=== PATIENT | female | born 1960 | race Caucasian/White ===

== ENCOUNTER 2024-08-15 21:35 | Observation (INO) ==
--- NOTE | 2024-08-15 22:06 | DR.CP ---
HPI Time Seen Time Seen by Provider: 08/15/24 21:56 PCP Primary Care Physician: Complaint Chief Complaint Doctor Comments: 63 yo F, hx of pacemaker for bradycardia, also hx of small-cell lung CA, c/o L-sided CP for past 4h [employer], with radiation into upper back, accomp by dyspnea. Denies other complaints. States pain is currently severe. States she had a stress test and cardiac cath ~1y ago, no stents needed at that time. Chief Complaint:: PT STATED SHE IS HAVING CHEST PAIN AND UPPER BACK SHOULDER PAIN THAT STARTED TODAY ABOUT 5PM THAT IS GETTING WORSE. Self Treatment fo Chief Complaint: NO Source History Provided: Patient Mode of Arrival Mode of Arrival: Ambulatory Timing Onset of Chief Complaint: 08/15/24 PMH PMH Past Medical History: Yes Past Medical History: Migraines Past Medical History Comment: PACEMAKER, GASTRIC BYPASS, SMALL CELL LUNG CANCER. Past Surgical History: Yes Surgical History: Cholecystectomy, Hysterectomy and Ortho Surgery Family History History of Family Medical Conditions: Yes Family Medical History: Diabetes Mellitus, Heart Failure and Hypertension Social History Do you use any recreational Drugs:: No Infectious screening Have you traveled outside the country in the last 6 months?: No Isolation: Standard ROS Review of Systems Respiratoy: Short of Breath Cardiovascular: Chest Pain Musculoskeletal: Back Pain All Other Systems: Reviewed and Negative PE Vitals Vitals: Vital Signs Temperature 98.2 F Pulse Rate 64 Pulse Rate 64 Pulse Rate 62 Pulse Rate 63 Pulse Rate 62 Pulse Rate 65 Pulse Rate 79 Pulse Rate 66 Pulse Rate 70 Pulse Rate 68 Pulse Rate 69 Pulse Rate 65 Pulse Rate 67 Pulse Rate 77 Respiratory Rate 18 Respiratory Rate 16 Respiratory Rate 15 Respiratory Rate 22 Respiratory Rate 13 Respiratory Rate 12 Respiratory Rate 20 Respiratory Rate 14 Respiratory Rate 26 Respiratory Rate 12 Respiratory Rate 13 Respiratory Rate 24 Respiratory Rate 20 Respiratory Rate 20 Blood Pressure 117/59 Blood Pressure 113/58 Blood Pressure 110/53 Blood Pressure 120/63 Blood Pressure 128/64 Blood Pressure 118/64 Blood Pressure 132/85 Blood Pressure 131/61 Blood Pressure 133/79 O2 Sat by Pulse Oximetry 95 O2 Sat by Pulse Oximetry 96 O2 Sat by Pulse Oximetry 95 O2 Sat by Pulse Oximetry 99 O2 Sat by Pulse Oximetry 98 O2 Sat by Pulse Oximetry 98 O2 Sat by Pulse Oximetry 100 O2 Sat by Pulse Oximetry 100 O2 Sat by Pulse Oximetry 99 General Limitations: No Limitations General Appearance: Alert and In No Apparent Distress Head Head Exam: Normal Inspection Eyes Eye exam: Normal Appearance ENT ENT Exam: Normal Exam Chest Chest Inspection: Normal Inspection Respiratory Respiratory Exam: Normal Lung Sounds Bilat Cardiovascular Cardiovascular Exam: Regular Rate and Normal Rhythm Pulse: Normal Edema: Normal Abdominal Exam Abdominal Exam: Normal Inspection, Normal Bowel Sounds and Soft Extremities Extremities Exam: Normal Inspection Back Back Exam: Normal Inspection Neurologic Neurological Exam: Alert and Oriented X3 Psychiatric Psychiatric Exam: Normal Affect and Normal Mood Skin Skin Exam: Warm, Dry, Intact and Normal Color ROR Labs Reviewed 08/15/24 22:13 08/15/24 22:13 Laboratory: WBC 5.7 X10^3/uL (3.6-10.0) 08/15/24 22:13 RBC 4.40 X10^6/uL (3.5-5.4) 08/15/24 22:13 Hgb 12.8 g/dL (12.0-16.0) 08/15/24 22:13 Hct 38.2 % (36.0-47.0) 08/15/24 22:13 MCV 86.8 fL (80.0-100.0) 08/15/24 22:13 MCH 29.1 pg (27.0-34.0) 08/15/24 22:13 MCHC 33.5 g/dL (33.0-35.0) 08/15/24 22:13 RDW 15.3 % (11.6-16.5) 08/15/24 22:13 Plt Count 216 X10^3/uL (150.0-450.0) 08/15/24 22:13 MPV 8.2 fL (7.4-11.0) 08/15/24 22:13 Neut % (Auto) 63.7 % (42.0-75.0) 08/15/24 22:13 Lymph % (Auto) 20.6 % (21.0-51.0) L 08/15/24 22:13 [place] % (Auto) 7.9 % (0.0-13.0) 08/15/24 22:13 Eos % (Auto) 6.9 % (0.9-2.9) H 08/15/24 22:13 Baso % (Auto) 0.9 % (0.2-1.0) 08/15/24 22:13 Neut # (Auto) 3.6 x10^3/uL (2.2-4.8) 08/15/24 22:13 Lymph # (Auto) 1.2 X10^3/uL (1.3-2.9) L 08/15/24 22:13 [place] # (Auto) 0.4 x10^3/uL (0.3-0.8) 08/15/24 22:13 Eos # (Auto) 0.4 x10^3/uL (0.0-0.2) H 08/15/24 22:13 Baso # (Auto) 0.1 X10^3/uL (0.0-0.1) 08/15/24 22:13 Absolute Nucleated RBC 0.2 /100WBC 08/15/24 22:13 PT 13.5 SECONDS (11.8-14.3) 08/15/24 22:13 INR Target Range - 08/15/24 22:13 INR 1.05 (0.8-1.3) 08/15/24 22:13 APTT 24.7 SECONDS (22.9-36.5) 08/15/24 22:13 PTT Comment - 08/15/24 22:13 Sodium 143 mmol/L (136-145) 08/15/24 22:13 Corrected Sodium 144 mmol/L (136-145) 08/15/24 22:13 Potassium 2.9 mmol/L (3.5-5.1) L* 08/15/24 22:13 Chloride 103 mmol/L (98-107) 08/15/24 22:13 Carbon Dioxide 29.8 mmol/L (21-32) 08/15/24 22:13 BUN 8 mg/dL (7-18) 08/15/24 22:13 Creatinine 0.87 mg/dL (0.55-1.02) 08/15/24 22:13 Est GFR (MDRD) Af Amer > 60 (>60) 08/15/24 22:13 Est GFR (MDRD) Non-Af > 60 (>60) 08/15/24 22:13 Glucose 131 mg/dL (65-99) H 08/15/24 22:13 Calcium 9.0 mg/dL (8.5-10.1) 08/15/24 22:13 Corrected Calcium TNP 08/15/24 22:13 Total Bilirubin 0.80 mg/dL (0.2-1.0) 08/15/24 22:13 AST 15 Units/L (15-37) 08/15/24 22:13 ALT 16 Units/L (12-78) 08/15/24 22:13 Alkaline Phosphatase 173 Units/L (46-116) H 08/15/24 22:13 Creatine Kinase 63 Units/L (26-192) 08/15/24 22:13 Troponin I High Sens 52.8 ng/L (4.0-60.0) 08/16/24 00:15 Total Protein 6.9 g/dL (6.4-8.2) 08/15/24 22:13 Albumin 3.4 g/dL (3.4-5.0) 08/15/24 22:13 Globulin 3.5 g/dL (2.5-4.5) 08/15/24 22:13 Albumin/Globulin Ratio 1.0 Ratio (1.1-2.1) L 08/15/24 22:13 Opioid Opioid Risk Tool Age (Elvis box if 16-45): No History of Preadolescent Sexual Abuse: No Total: 0 Total Score Risk Category: Low Risk Copyright: Mohan IRWIN predicting aberrant behaviors Discharge Plan Diagnosis Discharge Problem: Chest pain Discharge Plan Patient Disposition: 09 ADMITTED INPATIENT Condition: Stable Prescriptions: No Action hydrocodone-acetaminophen 10-325 mg tablet nabumetone 500 mg tablet Health Concerns: Post Hospitalization: new medications and changes needed to prevent readmission or further decline. Pt educated and given instructions on all concerns. Plan of Treatment: Continue with present treatment and follow up plan. Pt is to keep follow up appointment as instructed and take medications as ordered. Orders to Discharge Patient Discharge Orders: Transfer (Routine); Ordered 08/16/24 Ordered By: Stan Portillo Follow ups/Referrals Follow ups/Referrals: NFD,None [Primary Care Provider] - 3 days Instructions Stand Alone Forms: Find Help Web Site, Post Hospital Follow Up Care ADDITIONAL NOTES Additional Notes Additional Notes: Pt Accepted by Dr Mclaughlin at 0112AM
--- NOTE | 2024-08-15 22:16 | EKG ---
Test Reason : chest pain Blood Pressure : */* mmHG Vent. Rate : 79 BPM Atrial Rate : 79 BPM P-R Int : 264 ms QRS Dur : 102 ms QT Int : 388 ms P-R-T Axes : * -35 7 degrees QTc Int : 444 ms Atrial-paced rhythm with prolonged AV conduction Left axis deviation Low voltage QRS Inferior infarct , age undetermined Abnormal ECG No previous ECGs available Confirmed by Calin Osborne MD ([id number]) on 08/16/2024 6:33:07 AM Referred By: Confirmed By: Calin Osborne MD
[2024-08-15 22:26] LABS: BASOPHILS # (AUTO) 0.1 X10^3/uL (0.0-0.1); BASOPHILS % (AUTO) 0.9 % (0.2-1.0); EOSINOPHILS # (AUTO) 0.4 x10^3/uL (0.0-0.2); EOSINOPHILS % (AUTO) 6.9 % (0.9-2.9); HEMATOCRIT 38.2 % (36.0-47.0); HEMOGLOBIN 12.8 g/dL (12.0-16.0); LYMPHOCYTES # (AUTO) 1.2 X10^3/uL (1.3-2.9); LYMPHOCYTES % (AUTO) 20.6 % (21.0-51.0); MEAN CORPUSCULAR HEMOGLOBIN 29.1 pg (27.0-34.0); MEAN CORPUSCULAR HGB CONC 33.5 g/dL (33.0-35.0); MEAN CORPUSCULAR VOLUME 86.8 fL (80.0-100.0); MEAN PLATELET VOLUME 8.2 fL (7.4-11.0); MONOCYTES # (AUTO) 0.4 x10^3/uL (0.3-0.8); MONOCYTES % (AUTO) 7.9 % (0.0-13.0); NEUTROPHILS # (AUTO) 3.6 x10^3/uL (2.2-4.8); NEUTROPHILS % (AUTO) 63.7 % (42.0-75.0); PLATELET COUNT 216 X10^3/uL (150.0-450.0); RED CELL DISTRIBUTION WIDTH 15.3 % (11.6-16.5); WHITE BLOOD COUNT 5.7 X10^3/uL (3.6-10.0)
[2024-08-15 22:30] LABS: INR 1.05 (0.8-1.3)
[2024-08-15 22:50] LABS: ALANINE AMINOTRANSFERASE 16 Units/L (12-78); ALBUMIN 3.4 g/dL (3.4-5.0); ALKALINE PHOSPHATASE 173 Units/L (46-116); ASPARTATE AMINO TRANSFERASE 15 Units/L (15-37); BLOOD UREA NITROGEN 8 mg/dL (7-18); CARBON DIOXIDE 29.8 mmol/L (21-32); CHLORIDE 103 mmol/L (98-107); COR NA(FOR HYPERGLY) 144 mmol/L (136-145); CREATINE KINASE 63 Units/L (26-192); CREATININE 0.87 mg/dL (0.55-1.02); GLUCOSE 131 mg/dL (65-99); SODIUM 143 mmol/L (136-145); TOTAL PROTEIN 6.9 g/dL (6.4-8.2); eGFR NON BLACK RACES > 60 (>60)
[2024-08-15 22:51] LABS: POTASSIUM 2.9 mmol/L (3.5-5.1)
[2024-08-15] MEDS: ZOFRAN INJ 4 MG VIAL IVP ONE (23:05)
[2024-08-15] MEDS: NS 1,000 ML IV 1,000 ML IV ONE (23:06)
[2024-08-15] MEDS: DILAUDID INJ IVP ONE (23:06)
[2024-08-15] MEDS: K-DUR TAB 20 MEQ PO ONE (23:07)
[2024-08-15] MEDS: K-RIDER 10 MEQ/100 ML WATER 10 MEQ/100 ML BAG IV ONE (23:08)
--- NOTE | 2024-08-15 23:37 | CT ---
EXAMINATION:CTA, CHESTHISTORY:PT STATED SHE IS HAVING CHEST PAIN AND UPPER BACK SHOULDER PAIN THAT STARTED TODAY ABOUT 5PM THAT IS GETTING WORSE.;COMPARISON:None.TECHNIQUE:Contigu ous axial CT images of the thorax following intravenous contrast. Images reviewed in the axial imaging plane with post processing thick slab MIP/3D volume images at a workstationthe above CT scan was done with automated exposure control and the mA and kV was adjusted to obtain quality images according to patient size.FINDINGS:The lungs are expanded. No focal areas of pulmonary consolidation or pleural fluid collections. Minimal central bronchiectasis lower lungs. The central airways are patent.Cardiac pacer device left upper anterior chest. Mild cardiomegaly. Coronary artery calcifications. Enlarged main pulmonary outflow trunk measuring 3.3 cm diameter suspicious for pulmonary arterial hypertension. Normal enhancement of the thoracic aorta without evidence of aneurysm or dissection. Arterial vascular calcifications of the aorta and branch vessels.No pericardial effusion. No mediastinal or hilar adenopathy.Mild thoracic spondylosis.IMPRESSION:No evidence of acute pulmonary embolism.Enlarged main pulmonary outflow trunk suspicious for pulmonary arterial hypertension.No thoracic aortic aneurysm or dissection.Mild cardiomegaly, coronary artery calcifications. Evidence of right-sided cardiac dysfunction with reflux of contrast into the IVC.THIS IS AN ELECTRONICALLY VERIFIED FINAL REPORT08/15/2024 11:34 PM - Electronically signed by Vicki Spain MD
[2024-08-15] MEDS: MORPHINE SULFATE INJ 4 MG IVP ONE (23:42)
--- NOTE | 2024-08-16 01:49 | EKG ---
Test Reason : Chest Pain Blood Pressure : */* mmHG Vent. Rate : 71 BPM Atrial Rate : 71 BPM P-R Int : 268 ms QRS Dur : 94 ms QT Int : 382 ms P-R-T Axes : * -44 8 degrees QTc Int : 415 ms Atrial-paced rhythm with prolonged AV conduction Left axis deviation Low voltage QRS Cannot rule out Anterior infarct , age undetermined Abnormal ECG When compared with ECG of 15-AUG-2024 22:04, (Unconfirmed) Criteria for Inferior infarct are no longer present Confirmed by Calin Osborne MD ([id number]) on 08/16/2024 6:32:44 AM Referred By: Confirmed By: Calin Osborne MD
[2024-08-16] MEDS ORDERED: NS 1,000 ML IV 1,000 ML ONE (02:11)
[2024-08-16] MEDS: NS 1,000 ML IV 1,000 ML IV SCH (02:20)
[2024-08-16 02:54] VITALS: BMI 31.8
[2024-08-16] MEDS ORDERED: NORCO 5/325 MG TAB PO PRN (04:16)
[2024-08-16] MEDS: DILAUDID INJ IVP PRN (04:46)
[2024-08-16 06:30] LABS: INR 1.13 (0.8-1.3)
[2024-08-16 06:32] LABS: MEAN CORPUSCULAR VOLUME 86.8 fL (80.0-100.0); MONOCYTES # (AUTO) 0.6 x10^3/uL (0.3-0.8)
[2024-08-16 06:36] LABS: BASOPHILS % (AUTO) 0.6 % (0.2-1.0); EOSINOPHILS # (AUTO) 0.5 x10^3/uL (0.0-0.2); EOSINOPHILS % (AUTO) 8.3 % (0.9-2.9); HEMATOCRIT 36.6 % (36.0-47.0); HEMOGLOBIN 12.2 g/dL (12.0-16.0); LYMPHOCYTES # (AUTO) 1.5 X10^3/uL (1.3-2.9); LYMPHOCYTES % (AUTO) 26.1 % (21.0-51.0); MEAN CORPUSCULAR HEMOGLOBIN 28.9 pg (27.0-34.0); MEAN CORPUSCULAR HGB CONC 33.3 g/dL (33.0-35.0); MEAN PLATELET VOLUME 9.1 fL (7.4-11.0); MONOCYTES % (AUTO) 10.3 % (0.0-13.0); NEUTROPHILS # (AUTO) 3.1 x10^3/uL (2.2-4.8); NEUTROPHILS % (AUTO) 54.7 % (42.0-75.0); PLATELET COUNT 201 X10^3/uL (150.0-450.0); RED BLOOD COUNT 4.21 X10^6/uL (3.5-5.4); RED CELL DISTRIBUTION WIDTH 15.3 % (11.6-16.5); WHITE BLOOD COUNT 5.7 X10^3/uL (3.6-10.0)
[2024-08-16 06:39] LABS: ALANINE AMINOTRANSFERASE 15 Units/L (12-78); ALKALINE PHOSPHATASE 159 Units/L (46-116); ASPARTATE AMINO TRANSFERASE 16 Units/L (15-37); BLOOD UREA NITROGEN 6 mg/dL (7-18); CALCIUM 8.6 mg/dL (8.5-10.1); CARBON DIOXIDE 30.8 mmol/L (21-32); CHLORIDE 105 mmol/L (98-107); CHOL/HDL RATIO 2.5 (0.0-5.0); CHOLESTEROL 170 mg/dL (0-200); COR CA(FOR HYPOALB) 9.4 mg/dL (8.5-10.1); CREATININE 0.66 mg/dL (0.55-1.02); GLUCOSE 79 mg/dL (65-99); HDL CHOLESTEROL 67 mg/dL (40-60); MAGNESIUM 1.7 mg/dL (2.0-2.9); POTASSIUM 3.6 mmol/L (3.5-5.1); SODIUM 143 mmol/L (136-145); TOTAL PROTEIN 6.2 g/dL (6.4-8.2); TRIGLYCERIDES 92 mg/dL (0-150); eGFR NON BLACK RACES > 60 (>60)
[2024-08-16] MEDS: NS 100 ML IV 100 ML ONE (06:57)
[2024-08-16] MEDS: OMNIPAQUE 350 mg/mL 100 mL BTL 100 ML ONE (06:58)
--- NOTE | 2024-08-16 07:09 | RAD ---
EXAM:CHESTHISTORY:PT STATED SHE IS HAVING CHEST PAIN AND UPPER BACK SHOULDER PAIN THAT STARTED TODAY ABOUT 5PM THAT IS GETTING WORSE.;COMPARISON:CT chest August 15, 2023.TECHNIQUE:Frontal view of the chest was submitted for interpretation.FINDINGS:Left-sided cardiac pacer noted. The cardiomediastinal silhouette is within normal limits. Lungs show no focal consolidation, pneumothorax, or pleural fluid.IMPRESSION:No acute cardiopulmonary process.THIS IS AN ELECTRONICALLY VERIFIED FINAL REPORT08/16/2024 7:05 AM - Electronically signed by Didier Boogie MD
--- NOTE | 2024-08-16 07:20 | EKG ---
Test Reason : Chest Pain Blood Pressure : */* mmHG Vent. Rate : 62 BPM Atrial Rate : 62 BPM P-R Int : 250 ms QRS Dur : 94 ms QT Int : 334 ms P-R-T Axes : * -35 1 degrees QTc Int : 339 ms Atrial-paced rhythm with prolonged AV conduction Left axis deviation Low voltage QRS Nonspecific T wave abnormality Abnormal ECG When compared with ECG of 16-AUG-2024 01:28, Minimal criteria for Anterior infarct are no longer present Nonspecific T wave abnormality now evident in Lateral leads QT has shortened Confirmed by Calin Osborne MD ([id number]) on 08/17/2024 6:48:22 AM Referred By: Confirmed By: Calin Osborne MD
--- NOTE | 2024-08-16 07:31 | RAD ---
EXAM:CHESTHISTORY:CHEST PAIN ; MIGRAINES, SMALL CELL LUNG CANCER SX: MIKAELA, HYST, ORTHO, PACEMAKER, GASTRIC BYPASSCOMPARISON:August 15, 2024.TECHNIQUE:Frontal view of the chest was submitted for interpretation.FINDINGS:Left-sided cardiac pacer is stable. The cardiomediastinal silhouette is within normal limits. Lungs show no focal consolidation, pneumothorax, or pleural fluid.IMPRESSION:No acute cardiopulmonary process.THIS IS AN ELECTRONICALLY VERIFIED FINAL REPORT08/16/2024 7:18 AM - Electronically signed by Didier Boogie MD
[2024-08-16 07:47] LABS: PLATELET MORPHOLOGY COMMENT NORMAL (NORMAL)
[2024-08-16] MEDS ORDERED: CONSULT PHARMACY - POTASSIUM & MAGNESIUM XX SCH (08:00)
[2024-08-16] MEDS: ASPIRIN PO SCH (08:21)
[2024-08-16] MEDS: MAG-OX TAB PO SCH (08:21)
[2024-08-16] MEDS: K-DUR TAB 20 MEQ PO SCH (08:21)
--- NOTE | 2024-08-16 12:41 | EKG ---
Test Reason : Chest Pain Blood Pressure : */* mmHG Vent. Rate : 63 BPM Atrial Rate : 63 BPM P-R Int : 252 ms QRS Dur : 94 ms QT Int : 392 ms P-R-T Axes : * -24 -26 degrees QTc Int : 401 ms Atrial-paced rhythm with prolonged AV conduction Nonspecific T wave abnormality Abnormal ECG When compared with ECG of 16-AUG-2024 06:41, (Unconfirmed) Nonspecific T wave abnormality, improved in Lateral leads QT has lengthened Confirmed by Calin Osborne MD ([id number]) on 08/17/2024 6:48:12 AM Referred By: Confirmed By: Calin Osborne MD
[2024-08-16] MEDS ORDERED: METHOCARBAMOL IVP PRN (15:23)
[2024-08-16] MEDS: TORADOL 15 MG VIAL IVP PRN (15:37)
[2024-08-16] MEDS: ROBAXIN PO PRN (15:53)
--- NOTE | 2024-08-16 16:48 | EKG ---
Test Reason : Chest pain Blood Pressure : */* mmHG Vent. Rate : 67 BPM Atrial Rate : 67 BPM P-R Int : 240 ms QRS Dur : 86 ms QT Int : 380 ms P-R-T Axes : * -31 -18 degrees QTc Int : 401 ms Atrial-paced rhythm with prolonged AV conduction Left axis deviation Nonspecific T wave abnormality Low voltage QRS Cannot rule out Anterior infarct , age undetermined Abnormal ECG When compared with ECG of 16-AUG-2024 12:12, (Unconfirmed) No significant change was found Confirmed by Calin Osborne MD ([id number]) on 08/17/2024 6:46:45 AM Referred By: Confirmed By: Calin Osborne MD
--- NOTE | 2024-08-16 19:26 | DR.H&P ---
H&P History & Physical for Day of: H&P Date: 08/16/24 Chief Complaint Chief Complaint: Chest pain History of Present Illness History of Present Illness: Patient presented to the ER from home with chest pain that radiated to her mid back. ER with benign workup but concern about heart risk versus esophageal spasm. She did recently have her esophagus stretched. Seen now with nurse at bedside for daily rounds. Pain still present. Reproducible with motion. Denies any recent trauma. Pain located on anterior chest and on the back near her right shoulder blade. ROS: Positive for chest pain, back pain, and left knee pain. 12 point ROS otherwise negative. PE: Well-developed female in no acute distress. Head NCAT. Hearing intact conversation. EOMI. Trachea midline with full range of motion of the cervical spine. Heart regular rate and rhythm. Lungs are clear bilaterally. Bowel sounds are present with belly soft, nontender, nondistended. Mood and affect are appropriate. Able to move all extremities equally well. Pain is reproducible with palpation along the bilateral sternal border dinh and just right lateral to the spinous processes on the back. There is some swelling and muscle spasm of the right paraspinals. There is no deformity or skin changes anteriorly or posteriorly. Past Medical History Past Medical History: Migraines Past Surgical History Surgical History: Appendectomy, Cholecystectomy, Hysterectomy and Weight Loss Surgery Family History Family Medical History: Diabetes Mellitus Social History Does patient currently use any type of tobacco product: No Type of Tobacco Use: None How many years tobacco product used: 20 Does any household member use tobacco: Yes Alcohol Use: None Drug Use: None Medications Home Medications: Home Medications Medication Instructions Recorded Confirmed Type hydrocodone 10 mg-acetaminophen 1 tab PO Q6HR PRN 08/15/24 08/16/24 History 325 mg tablet nabumetone 500 mg tablet 1,000 mg PO QDAY 08/15/24 08/16/24 History Allergies Allergies Allergy/AdvReac Type Severity Reaction Status Date / Time morphine Allergy Verified 03/23/23 20:05 nitroglycerin Allergy Verified 03/23/23 20:05 [From Nitro-Dur] Sulfa (Sulfonamide Allergy Verified 03/23/23 20:05 Antibiotics) [SULFA] Labs 08/16/24 05:30 08/16/24 05:30 Labs: Laboratory WBC 5.7 X10^3/uL (3.6-10.0) 08/16/24 05:30 RBC 4.21 X10^6/uL (3.5-5.4) 08/16/24 05:30 Hgb 12.2 g/dL (12.0-16.0) 08/16/24 05:30 Hct 36.6 % (36.0-47.0) 08/16/24 05:30 MCV 86.8 fL (80.0-100.0) 08/16/24 05:30 MCH 28.9 pg (27.0-34.0) 08/16/24 05:30 MCHC 33.3 g/dL (33.0-35.0) 08/16/24 05:30 RDW 15.3 % (11.6-16.5) 08/16/24 05:30 Plt Count 201 X10^3/uL (150.0-450.0) 08/16/24 05:30 Plt Count Comment Decreased (ADEQUATE) A 08/16/24 05:30 MPV 9.1 fL (7.4-11.0) 08/16/24 05:30 Neut % (Auto) 54.7 % (42.0-75.0) 08/16/24 05:30 Lymph % (Auto) 26.1 % (21.0-51.0) 08/16/24 05:30 [place] % (Auto) 10.3 % (0.0-13.0) 08/16/24 05:30 Eos % (Auto) 8.3 % (0.9-2.9) H 08/16/24 05:30 Baso % (Auto) 0.6 % (0.2-1.0) 08/16/24 05:30 Neut # (Auto) 3.1 x10^3/uL (2.2-4.8) 08/16/24 05:30 Lymph # (Auto) 1.5 X10^3/uL (1.3-2.9) 08/16/24 05:30 [place] # (Auto) 0.6 x10^3/uL (0.3-0.8) 08/16/24 05:30 Eos # (Auto) 0.5 x10^3/uL (0.0-0.2) H 08/16/24 05:30 Baso # (Auto) 0.0 X10^3/uL (0.0-0.1) 08/16/24 05:30 Absolute Nucleated RBC 0.6 /100WBC 08/16/24 05:30 Plt Morphology Comment Normal (NORMAL) 08/16/24 05:30 RBC Morphology Normal (NORMAL) 08/16/24 05:30 PT 14.3 SECONDS (11.8-14.3) 08/16/24 05:30 INR Target Range - 08/16/24 05:30 INR 1.13 (0.8-1.3) 08/16/24 05:30 APTT 21.2 SECONDS (22.9-36.5) L 08/16/24 05:30 PTT Comment - 08/16/24 05:30 Sodium 143 mmol/L (136-145) 08/16/24 05:30 Corrected Sodium TNP 08/16/24 05:30 Potassium 3.6 mmol/L (3.5-5.1) 08/16/24 05:30 Chloride 105 mmol/L (98-107) 08/16/24 05:30 Carbon Dioxide 30.8 mmol/L (21-32) 08/16/24 05:30 BUN 6 mg/dL (7-18) L 08/16/24 05:30 Creatinine 0.66 mg/dL (0.55-1.02) 08/16/24 05:30 Est GFR (MDRD) Af Amer > 60 (>60) 08/16/24 05:30 Est GFR (MDRD) Non-Af > 60 (>60) 08/16/24 05:30 Glucose 79 mg/dL (65-99) 08/16/24 05:30 Calcium 8.6 mg/dL (8.5-10.1) 08/16/24 05:30 Corrected Calcium 9.4 mg/dL (8.5-10.1) 08/16/24 05:30 Magnesium 1.7 mg/dL (2.0-2.9) L 08/16/24 05:30 Total Bilirubin 1.00 mg/dL (0.2-1.0) 08/16/24 05:30 AST 16 Units/L (15-37) 08/16/24 05:30 ALT 15 Units/L (12-78) 08/16/24 05:30 Alkaline Phosphatase 159 Units/L (46-116) H 08/16/24 05:30 Creatine Kinase 55 Units/L (26-192) 08/16/24 07:55 Troponin I High Sens 55.2 ng/L (4.0-60.0) 08/16/24 13:25 Total Protein 6.2 g/dL (6.4-8.2) L 08/16/24 05:30 Albumin 3.0 g/dL (3.4-5.0) L 08/16/24 05:30 Globulin 3.2 g/dL (2.5-4.5) 08/16/24 05:30 Albumin/Globulin Ratio 0.9 Ratio (1.1-2.1) L 08/16/24 05:30 Triglycerides 92 mg/dL (0-150) 08/16/24 05:30 Cholesterol 170 mg/dL (0-200) 08/16/24 05:30 LDL Cholesterol, Calc 85 mg/dL (0-100) 08/16/24 05:30 HDL Cholesterol 67 mg/dL (40-60) H 08/16/24 05:30 Cholesterol/HDL Ratio 2.5 (0.0-5.0) 08/16/24 05:30 Physical Exam Vital Signs: Vital Signs Temperature 98.3 F Temperature 97.9 F Pulse Rate [Right Brachial] 72 Pulse Rate [Right Brachial] 62 Respiratory Rate 20 Respiratory Rate 20 Respiratory Rate 18 Respiratory Rate 20 Respiratory Rate 20 Respiratory Rate 18 Blood Pressure [Right Arm] 98/55 Blood Pressure [Right Arm] 103/59 O2 Sat by Pulse Oximetry 92 O2 Sat by Pulse Oximetry 99 Assessment/Plan (1) Anterior chest wall pain: Narrative Support Text: Will try some Robaxin and ketorolac. Seems to be all musculoskeletal. Will allow to rest overnight and plan to discharge tomorrow. Troponins have been negative. EKG with no changes. Does not appear to be an acute event or for there to be any need for transfer. Status: Acute (2) Thoracic spine pain: Status: Acute (3) Acute hypokalemia: Narrative Support Text: Resolved. Recheck tomorrow. Status: Acute
[2024-08-17 06:13] LABS: BASOPHILS # (AUTO) 0.1 X10^3/uL (0.0-0.1); BASOPHILS % (AUTO) 1.5 % (0.2-1.0); EOSINOPHILS # (AUTO) 0.4 x10^3/uL (0.0-0.2); EOSINOPHILS % (AUTO) 6.8 % (0.9-2.9); HEMOGLOBIN 11.8 g/dL (12.0-16.0); LYMPHOCYTES # (AUTO) 0.9 X10^3/uL (1.3-2.9); LYMPHOCYTES % (AUTO) 13.7 % (21.0-51.0); MEAN CORPUSCULAR HEMOGLOBIN 29.3 pg (27.0-34.0); MEAN CORPUSCULAR HGB CONC 33.7 g/dL (33.0-35.0); MEAN PLATELET VOLUME 8.7 fL (7.4-11.0); MONOCYTES # (AUTO) 0.5 x10^3/uL (0.3-0.8); MONOCYTES % (AUTO) 7.8 % (0.0-13.0); NEUTROPHILS # (AUTO) 4.5 x10^3/uL (2.2-4.8); NEUTROPHILS % (AUTO) 70.2 % (42.0-75.0); PLATELET COUNT 181 X10^3/uL (150.0-450.0); RED BLOOD COUNT 4.02 X10^6/uL (3.5-5.4); RED CELL DISTRIBUTION WIDTH 15.2 % (11.6-16.5); WHITE BLOOD COUNT 6.4 X10^3/uL (3.6-10.0)
[2024-08-17 06:31] LABS: ALANINE AMINOTRANSFERASE 15 Units/L (12-78); ALBUMIN 2.7 g/dL (3.4-5.0); ALKALINE PHOSPHATASE 143 Units/L (46-116); ASPARTATE AMINO TRANSFERASE 19 Units/L (15-37); BLOOD UREA NITROGEN 6 mg/dL (7-18); CALCIUM 8.6 mg/dL (8.5-10.1); CARBON DIOXIDE 31.5 mmol/L (21-32); CHLORIDE 107 mmol/L (98-107); COR CA(FOR HYPOALB) 9.6 mg/dL (8.5-10.1); CREATININE 0.63 mg/dL (0.55-1.02); GLUCOSE 81 mg/dL (65-99); MAGNESIUM 1.9 mg/dL (2.0-2.9); SODIUM 143 mmol/L (136-145); TOTAL PROTEIN 5.7 g/dL (6.4-8.2); eGFR NON BLACK RACES > 60 (>60)
[2024-08-17] MEDS ORDERED: CONSULT PHARMACY - POTASSIUM & MAGNESIUM XX SCH (07:00)
[2024-08-17 07:39] VITALS: TEMP 98.2
[2024-08-17] MEDS: MAG-OX TAB PO SCH (08:31)
[2024-08-17 11:29] VITALS: BP 111/64; PULSE 66; O2SAT 99
[2024-08-17 12:08] VITALS: RESP 20
[2024-08-17] MEDS: DECADRON INJ IVP ONE (14:03)
[2024-08-17] MEDS: NORCO 10/325 TAB PO PRN (14:04)
--- NOTE | 2024-08-20 10:22 | PCM.DCPLAN ---
DISCHARGE SUMMARY Admission Date Date of Admission: 08/15/24 Discharge Date Discharge Date: 08/17/24 Admission Diagnoses (1) Anterior chest wall pain: Status: Acute (2) Thoracic spine pain: Status: Acute (3) Acute hypokalemia: Status: Acute Discharge Medications Discharge Medications: Home Medication List hydrocodone 10 mg-acetaminophen 325 mg tablet 1 tab PO Q6HR PRN 08/15/24 [History] nabumetone 500 mg tablet 1,000 mg PO QDAY 08/15/24 [History] Prescriptions: Hospital Course Vital Signs: Vital Signs Temperature 98.2 F Temperature 98.2 F Pulse Rate [Right Brachial] 66 Pulse Rate [Right Brachial] 65 Respiratory Rate 20 Respiratory Rate 20 Respiratory Rate 20 Respiratory Rate 18 Respiratory Rate 18 Blood Pressure [Right Arm] 111/64 Blood Pressure [Right Arm] 116/63 O2 Sat by Pulse Oximetry 99 O2 Sat by Pulse Oximetry 92 Latest Lab Results: Laboratory Last Values WBC 6.4 X10^3/uL (3.6-10.0) 08/17/24 05:34 RBC 4.02 X10^6/uL (3.5-5.4) 08/17/24 05:34 Hgb 11.8 g/dL (12.0-16.0) L 08/17/24 05:34 Hct 35.0 % (36.0-47.0) L 08/17/24 05:34 MCV 87.0 fL (80.0-100.0) 08/17/24 05:34 MCH 29.3 pg (27.0-34.0) 08/17/24 05:34 MCHC 33.7 g/dL (33.0-35.0) 08/17/24 05:34 RDW 15.2 % (11.6-16.5) 08/17/24 05:34 Plt Count 181 X10^3/uL (150.0-450.0) 08/17/24 05:34 Plt Count Comment Decreased (ADEQUATE) A 08/16/24 05:30 MPV 8.7 fL (7.4-11.0) 08/17/24 05:34 Neut % (Auto) 70.2 % (42.0-75.0) 08/17/24 05:34 Lymph % (Auto) 13.7 % (21.0-51.0) L 08/17/24 05:34 [place] % (Auto) 7.8 % (0.0-13.0) 08/17/24 05:34 Eos % (Auto) 6.8 % (0.9-2.9) H 08/17/24 05:34 Baso % (Auto) 1.5 % (0.2-1.0) H 08/17/24 05:34 Neut # (Auto) 4.5 x10^3/uL (2.2-4.8) 08/17/24 05:34 Lymph # (Auto) 0.9 X10^3/uL (1.3-2.9) L 08/17/24 05:34 [place] # (Auto) 0.5 x10^3/uL (0.3-0.8) 08/17/24 05:34 Eos # (Auto) 0.4 x10^3/uL (0.0-0.2) H 08/17/24 05:34 Baso # (Auto) 0.1 X10^3/uL (0.0-0.1) 08/17/24 05:34 Absolute Nucleated RBC 0.1 /100WBC 08/17/24 05:34 Plt Morphology Comment Normal (NORMAL) 08/16/24 05:30 RBC Morphology Normal (NORMAL) 08/16/24 05:30 PT 14.3 SECONDS (11.8-14.3) 08/16/24 05:30 INR Target Range - 08/16/24 05:30 INR 1.13 (0.8-1.3) 08/16/24 05:30 APTT 21.2 SECONDS (22.9-36.5) L 08/16/24 05:30 PTT Comment - 08/16/24 05:30 Sodium 143 mmol/L (136-145) 08/17/24 05:34 Corrected Sodium TNP 08/17/24 05:34 Potassium 4.0 mmol/L (3.5-5.1) 08/17/24 05:34 Chloride 107 mmol/L (98-107) 08/17/24 05:34 Carbon Dioxide 31.5 mmol/L (21-32) 08/17/24 05:34 BUN 6 mg/dL (7-18) L 08/17/24 05:34 Creatinine 0.63 mg/dL (0.55-1.02) 08/17/24 05:34 Est GFR (MDRD) Af Amer > 60 (>60) 08/17/24 05:34 Est GFR (MDRD) Non-Af > 60 (>60) 08/17/24 05:34 Glucose 81 mg/dL (65-99) 08/17/24 05:34 Calcium 8.6 mg/dL (8.5-10.1) 08/17/24 05:34 Corrected Calcium 9.6 mg/dL (8.5-10.1) 08/17/24 05:34 Magnesium 1.9 mg/dL (2.0-2.9) L 08/17/24 05:34 Total Bilirubin 0.70 mg/dL (0.2-1.0) 08/17/24 05:34 AST 19 Units/L (15-37) 08/17/24 05:34 ALT 15 Units/L (12-78) 08/17/24 05:34 Alkaline Phosphatase 143 Units/L (46-116) H 08/17/24 05:34 Creatine Kinase 45 Units/L (26-192) 08/17/24 01:45 Troponin I High Sens 51.1 ng/L (4.0-60.0) 08/16/24 17:08 Total Protein 5.7 g/dL (6.4-8.2) L 08/17/24 05:34 Albumin 2.7 g/dL (3.4-5.0) L 08/17/24 05:34 Globulin 3.0 g/dL (2.5-4.5) 08/17/24 05:34 Albumin/Globulin Ratio 0.9 Ratio (1.1-2.1) L 08/17/24 05:34 Triglycerides 92 mg/dL (0-150) 08/16/24 05:30 Cholesterol 170 mg/dL (0-200) 08/16/24 05:30 LDL Cholesterol, Calc 85 mg/dL (0-100) 08/16/24 05:30 HDL Cholesterol 67 mg/dL (40-60) H 08/16/24 05:30 Cholesterol/HDL Ratio 2.5 (0.0-5.0) 08/16/24 05:30 Hospital Course: Patient admitted from home via the ER due to concerns about atypical chest pain. Cardiac testing remained benign throughout stay. On my exam on the day of admission, pain was reproducible with palpation of her right traps/rhomboids and anterior chest wall. Testing remained benign and vitals remained stable. She was given high-dose steroids to try to help with the potential fibromyalgia flare versus costochondritis. She did respond fairly well and she was sent home with instructions to follow-up with PCP. Patient felt to be very low risk for cardiac event given the reproducible thoracic pain.
== END 2024-08-17 15:52 | disposition home or self-care (01) ==
LOC: ER 21:35 → MED/SURG 21:35
PROVIDERS: ADMIT Family Medicine; ATTEND Family Medicine
DX: E87.6 Hypokalemia; Z95.0 Presence of cardiac pacemaker; R07.89 Other chest pain; Z98.84 Bariatric surgery status; R79.1 Abnormal coagulation profile; R73.09 Other abnormal glucose; E83.42 Hypomagnesemia; M54.6 Pain in thoracic spine; R94.31 Abnormal electrocardiogram [ECG] [EKG]; Z85.118 Personal history of other malignant neoplasm of bronchus and lung; M25.519 Pain in unspecified shoulder